=== PATIENT | male | born 2000 | race Caucasian/White ===

== ENCOUNTER 2018-08-19 00:32 | Emergency (ER) | payer BC ==
[~2018-08-19] VITALS: Ht 185.4 cm; Wt 113.4 kg
[2018-08-19 00:59] VITALS: Ht 185.4 cm; Wt 113.4 kg
[2018-08-19 03:51] VITALS: BP 134/92
== END 2018-08-19 03:51 | disposition home or self-care (01) ==
LOC: ED 00:32
DX: S46.912A Strain of unspecified muscle, fascia and tendon at shoulder and upper arm level, left arm, initial encounter (principal); J45.909 Unspecified asthma, uncomplicated; Z88.2 Allergy status to sulfonamides; V80.010A Animal-rider injured by fall from or being thrown from horse in noncollision accident, initial encounter; Y93.89 Activity, other specified; Y92.89 Other specified places as the place of occurrence of the external cause; Y99.8 Other external cause status